=== PATIENT | male | born 1945 | race Caucasian/White ===

== ENCOUNTER 2020-09-28 12:31 | Inpatient (IN) | payer MEDICARE ==
[~2020-09-28] VITALS: Ht 170.2 cm; Wt 83.9 kg
[2020-09-28] MEDS ORDERED: LEVO125T8 PO (12:43)
[2020-09-28] MEDS ORDERED: ATOR10TA PO (12:43)
[2020-09-28] MEDS ORDERED: OLAN5TAB3 PO ×2 (12:43)
[2020-09-28] MEDS ORDERED: [UNRECOGNIZED DRUG - OTHER] IM (12:43)
[2020-09-28] MEDS ORDERED: ASPI81TA31 PO (12:43)
--- NOTE | 2020-09-28 12:45 | NUR ---
Dr Doyle evaluated the pt.
--- NOTE | 2020-09-28 12:48 | NUR ---
Pt walking out of the room, asking for his . Lunch tray provided, redirect pt back to the room.
--- NOTE | 2020-09-28 12:50 | NUR ---
Pt medically cleared by Dr Doyle for admit to [facility].
--- NOTE | 2020-09-28 13:02 | NUR ---
Pt is asking "how to get of here". Pt wore his christiano to leave ER. Redirected back to his room.
[2020-09-28] MEDS ORDERED: diphenhydrAMINE 50 MG/1 ML VIAL IM ONE (13:45)
[2020-09-28] MEDS ORDERED: HALOPERIDOL LACTATE 5 MG/1 ML VIAL IM ONE (13:45)
[2020-09-28] MEDS ORDERED: MAG HYDROX/AL HYDROX/SIMETH 30 ML LIQUID UDC PO PRN (13:45)
[2020-09-28] MEDS ORDERED: ACETAMINOPHEN 325 MG TABLET PO PRN (13:45)
[2020-09-28] MEDS ORDERED: MAGNESIUM HYDROXIDE 30 ML LIQUID UDC PO PRN (13:45)
[2020-09-28] MEDS ORDERED: LORAZEPAM 2 MG/1 ML VIAL IV ONE (13:45)
--- NOTE | 2020-09-28 13:45 | NUR ---
GPS: Nursing Notes: Admitting Notes: ER placed him in the system at this time. Admitted to [facility] on [address] due to losing his house at [facility] about a month ago, states that he has a history of being on [place] for 17 years, but has been non-adherent for the last few years. Patient tangential, disorganized, with fight of ideas, unable to present a tangible plan for self care. On face to face assessment, patient is angry, labile, unpredictable behavior, AWOL risk, restless behavior, threatening staff, "I know karate..I can hurt you..", "I am leaving...I am not going to stay...", pushing the exit doors, shouting "I am leaving... My is waiting for me outside...", intrusive, going into the social service liaison's office, Standing by the exit door waiting for someone to enter the unit, so he can elope, copy of advisement given to patient but shouting "It is a lie... I am a millionaire...I have money...", "I am not homeless...", "My is waiting for me outside..", setting limits, oriented to the unit, admitting package given to patient, but unable to be redirected, paranoid and restless behavior, unable to contract for safety, refusing to give contraband items in his possession, Dr. Foss called back and ordered Haldol 5mg IM, Ativan 2mg IM, and Benadryl 25mg IM STAT for severe agitation, continue to monitor for safety, continue with treatment plan.
--- NOTE | 2020-09-28 14:15 | NUR ---
GPS: Nursing Notes: Reassessment of Chemical Restraint: Patient is awake and responding to his name, patient became calm, following staff directions, resistant with nursing care, but calmer, less paranoid, IM medications were effective, R=18, continue to monitor for safety, continue with treatment plan.
--- NOTE | 2020-09-28 14:43 | NUR ---
Firearms Report: Reconnaissance Crewmember completed and submitted a [employer] firearms report for 5150 grave disability certification. A copy of report has been placed in patient chart.
--- NOTE | 2020-09-28 14:49 | NUR ---
Treatment Plan: Pt refused to sign treatment plan due to being confused and verbally aggressive.
[2020-09-28 15:00] VITALS: BP 134/73
--- NOTE | 2020-09-28 15:18 | NUR ---
SW Initial Discharge Plan: Patient is homeless and will require a placement. This SW spoke with patient's Miley ([phone]) and discharge and treatment plan. Miley stated that she lives in [facility] and is unable to take care of pt. This SW will work with the MD and pt to find proper placement.
--- NOTE | 2020-09-28 15:18 | NUR ---
SW Family Contact: This SW spoke with patient's Miley ([phone]) and discharge and treatment plan. Miley stated that she lives in [facility] and is unable to take care of pt.
[2020-09-28 20:00] VITALS: BP 133/75
[2020-09-28] MEDS: DIVALPROEX 250 MG TABLET.DR PO SCH (22:48)
--- NOTE | 2020-09-29 05:43 | NUR ---
GPS: Remain calm and cooperative with meds and care. no agitation noted at this time. continue plan of care.
--- NOTE | 2020-09-29 06:02 | NUR ---
slept 5.30 hrs through the night.
[2020-09-29] MEDS: DIVALPROEX 250 MG TABLET.DR PO SCH ×3 (08:18→16:39)
[2020-09-29] MEDS: LORAZEPAM 1 MG TABLET PO PRN ×2 (08:18→22:47)
[2020-09-29 08:25] LABS: BILIRUBIN,TOTAL 0.3 mg/dL (0.2-1.0); POTASSIUM 4.2 mmol/L (3.5-5.1); TOTAL PROTEIN, SERUM 6.7 g/dL (6.4-8.2)
[2020-09-29 08:30] VITALS: BP 124/85
[2020-09-29] MEDS: ASPIRIN 81 MG TAB.CHEW PO SCH (09:52)
[2020-09-29] MEDS: LEVOTHYROXINE SODIUM 125 MCG TABLET PO SCH (09:52)
[2020-09-29 15:00] VITALS: BP 140/73
[2020-09-29 20:11] VITALS: BP 114/67
[2020-09-29] MEDS: ATORVASTATIN 10 MG TABLET PO SCH (20:31)
[2020-09-30] MEDS: LEVOTHYROXINE SODIUM 125 MCG TABLET PO SCH (06:40)
[2020-09-30 07:30] VITALS: BP 115/71
--- NOTE | 2020-09-30 09:00 | NUR ---
SNF Referral: This SW sent clinicals to [place] admin from [facility] ([phone]) for placement option. This SW faxed H & P, progress notes, and medication list.
--- NOTE | 2020-09-30 09:48 | NUR ---
SNF Referral: This SW spoke with admin from [facility] ([phone]) who stated pt is accepted.
[2020-09-30] MEDS: DIVALPROEX 250 MG TABLET.DR PO SCH ×3 (10:01→18:17)
[2020-09-30] MEDS: ASPIRIN 81 MG TAB.CHEW PO SCH (10:01)
--- NOTE | 2020-09-30 10:21 | NUR ---
Friend Contact: This SW received a phone call from friend Ty ([phone]) and was concerned for pt. This SW explained patient's treatment and discharge plan.
[2020-09-30 16:00] VITALS: BP 127/73
[2020-09-30 19:53] VITALS: BP 125/63
[2020-09-30] MEDS: ATORVASTATIN 10 MG TABLET PO SCH (21:20)
[2020-09-30] MEDS: NYSTATIN POWDER 15 GM BOTTLE TOP SCH (21:22)
--- NOTE | 2020-09-30 22:02 | NUR ---
Received patient in the hallway, hyperverbal, attention seeking, semi fair insight and semi fair judgment. Patient will remain in a psych facility for further evaluation and treatment.
[2020-10-01] MEDS: LEVOTHYROXINE SODIUM 125 MCG TABLET PO SCH (06:06)
[2020-10-01 07:30] VITALS: BP 138/67
[2020-10-01] MEDS: ASPIRIN 81 MG TAB.CHEW PO SCH (08:38)
[2020-10-01] MEDS: DIVALPROEX 250 MG TABLET.DR PO SCH ×3 (08:38→16:53)
[2020-10-01] MEDS: NYSTATIN POWDER 15 GM BOTTLE TOP SCH ×2 (08:38→21:26)
--- NOTE | 2020-10-01 14:43 | NUR ---
SW Individual Therapy: drive worker met with patient for brief counseling to help address patients presenting problem disorganized thought content. Pt appeared to be somewhat confused, however, pt was able to have a conversation with this SW. Pt appeared tearful while this SW was conducting therapy. Pt shared that his mother and brother from cancer. Pt expressed that he feels sad and is unable to let it go. SW actively listened and provided emotional support.
[2020-10-01 16:00] VITALS: BP 128/65
[2020-10-01 20:26] VITALS: BP 104/57
[2020-10-01] MEDS: ATORVASTATIN 10 MG TABLET PO SCH (21:24)
[2020-10-01] MEDS: TEMAZEPAM 7.5 MG CAPSULE PO PRN (21:24)
--- NOTE | 2020-10-02 05:34 | NUR ---
SHIFT NOTE; PT IS ALERT AND ORIENTED X4 REPORT RECEIVED FROM CAMPOS NO SIGNS OF DISTRESS NOTED. TOOK HS MEDICATION SLEPT DURING NIGHT PT AWAKENED BY ROOMMATE TAKING HIS JACKET . PT IS CALM AFTER TALKING WITH ROOM MATE. WILL ENDORSE TO AM NURSE.
[2020-10-02] MEDS: LEVOTHYROXINE SODIUM 125 MCG TABLET PO SCH (06:02)
[2020-10-02] MEDS: ASPIRIN 81 MG TAB.CHEW PO SCH (08:21)
[2020-10-02] MEDS: DIVALPROEX 250 MG TABLET.DR PO SCH ×3 (08:21→16:55)
[2020-10-02] MEDS: NYSTATIN POWDER 15 GM BOTTLE TOP SCH ×2 (08:22→20:17)
[2020-10-02] MEDS: CLOTRIMAZOLE 1% CREAM 30 GM TUBE TOP SCH (08:22)
[2020-10-02 10:14] VITALS: BP 124/82
--- NOTE | 2020-10-02 12:01 | NUR ---
JELLY PC Hearing: Patient had 5250 probable cause hearing today and it was upheld for grave disability.
[2020-10-02 20:15] VITALS: BP 117/65
[2020-10-02] MEDS: ATORVASTATIN 10 MG TABLET PO SCH (20:16)
[2020-10-03] MEDS: LEVOTHYROXINE SODIUM 125 MCG TABLET PO SCH (06:18)
--- NOTE | 2020-10-03 06:28 | NUR ---
GPS: GPS: Remain calm and cooperative with meds and care. no agitation noted at this time. continue plan of care. took shower this morning. slept 6.30 hrs through the night. resting on bed comfortably.
[2020-10-03 07:56] VITALS: BP 118/62
[2020-10-03] MEDS: DIVALPROEX 250 MG TABLET.DR PO SCH ×3 (09:24→16:46)
[2020-10-03] MEDS: ASPIRIN 81 MG TAB.CHEW PO SCH (09:24)
[2020-10-03] MEDS: NYSTATIN POWDER 15 GM BOTTLE TOP SCH ×2 (09:25→20:08)
[2020-10-03] MEDS: CLOTRIMAZOLE 1% CREAM 30 GM TUBE TOP SCH (09:26)
[2020-10-03 16:24] VITALS: BP 117/72
[2020-10-03] MEDS: ATORVASTATIN 10 MG TABLET PO SCH (20:08)
[2020-10-03 20:09] VITALS: BP 115/71
[2020-10-04] MEDS: LEVOTHYROXINE SODIUM 125 MCG TABLET PO SCH (06:15)
[2020-10-04 07:30] VITALS: BP 112/75
[2020-10-04] MEDS: ASPIRIN 81 MG TAB.CHEW PO SCH (08:17)
[2020-10-04] MEDS: DIVALPROEX 250 MG TABLET.DR PO SCH ×3 (08:17→16:52)
[2020-10-04] MEDS: CLOTRIMAZOLE 1% CREAM 30 GM TUBE TOP SCH (08:17)
[2020-10-04] MEDS: NYSTATIN POWDER 15 GM BOTTLE TOP SCH ×2 (08:18→20:26)
[2020-10-04 15:38] VITALS: BP 124/64
[2020-10-04 20:12] VITALS: BP 116/57
[2020-10-04] MEDS: ATORVASTATIN 10 MG TABLET PO SCH (20:26)
[2020-10-05] MEDS: LEVOTHYROXINE SODIUM 125 MCG TABLET PO SCH (06:12)
--- NOTE | 2020-10-05 06:36 | NUR ---
Received Pt in the day room socializing with his peers. Pt is hyperverbal with pressured speech, and is loose and tangential in thought process. Pt is somatic and hyper-fixated on his perceived hernia and the "need to go to [facility] so I can get my operation by Dr Brewer, make sure that is in my chart." Pt is delusional and grandiose stating he is "not homeless, I have million of dollars." Pt is needy and intrusive, and attempts to interfere with the care of other patients, requiring frequent redirection. Pt is labile when boundaries are enforced and limits are set. Pt was noted to be anxious and restless, but refused prn medication when offered. Remains with poor insight. Denies SI/HI andf verbally contracts for safety. VS stable, denies pain.
[2020-10-05 07:30] VITALS: BP 123/71
[2020-10-05] MEDS: CLOTRIMAZOLE 1% CREAM 30 GM TUBE TOP SCH (08:28)
[2020-10-05] MEDS: ASPIRIN 81 MG TAB.CHEW PO SCH (08:28)
[2020-10-05] MEDS: DIVALPROEX 250 MG TABLET.DR PO SCH ×3 (08:28→16:29)
[2020-10-05] MEDS: NYSTATIN POWDER 15 GM BOTTLE TOP SCH ×2 (08:29→20:16)
--- NOTE | 2020-10-05 15:03 | NUR ---
JELLY Individual Therapy: animal shelter worker met with patient for brief counseling to help address patients presenting problem disorganized thought content. Pt appeared to be somewhat confused. He was fixated on his hernia surgery. Pt unable to have conversation at this time due to being delusional.
[2020-10-05 15:11] VITALS: BP 122/74
[2020-10-05 20:08] VITALS: BP 119/66
[2020-10-05] MEDS: ATORVASTATIN 10 MG TABLET PO SCH (20:16)
[2020-10-06] MEDS: LEVOTHYROXINE SODIUM 125 MCG TABLET PO SCH (06:24)
[2020-10-06 07:30] VITALS: BP 141/54
[2020-10-06] MEDS: ASPIRIN 81 MG TAB.CHEW PO SCH (09:00)
[2020-10-06] MEDS: DIVALPROEX 250 MG TABLET.DR PO SCH ×3 (09:01→16:32)
[2020-10-06] MEDS: CLOTRIMAZOLE 1% CREAM 30 GM TUBE TOP SCH (09:01)
[2020-10-06] MEDS: NYSTATIN POWDER 15 GM BOTTLE TOP SCH ×2 (09:02→20:50)
[2020-10-06 13:12] LABS: *BILIRUBIN,URIN NEGATIVE (NEGATIVE); *BLOOD, URINE TRACE (NEGATIVE); *CLARITY,URINE CLEAR (CLEAR); *COLOR,URINE YELLOW (YELLOW); *KETONES,URINE NEGATIVE (NEGATIVE); *UROBILINOGEN,URINE 0.2 E.U./dl (NORMAL); LEUKOCYTE ESTERASE ,URINE NEGATIVE (NEGATIVE); NITRITE, URINE NEGATIVE (NEGATIVE); UGLUCOSE NEGATIVE (NEGATIVE)
--- NOTE | 2020-10-06 15:11 | NUR ---
Friend Contact: This SW contacted patient's friend Ty ([phone]) and gave information of pt's that he will be discharged on Monday 10/09 to [facility].
--- NOTE | 2020-10-06 15:12 | NUR ---
SW Family Contact: This SW left a voicemail for pt's Miley ([phone]) and stated that pt will be discharged / to [facility] and left a detailed voicemail.
[2020-10-06 15:22] VITALS: BP 110/56
[2020-10-06 16:15] LABS: BACTERIA,URINE NONE SEEN /HPF (NONE SEEN); RBC,URINE 0-3 /HPF (0-3); SQUAMOUS EPITHELIAL CELL,UR FEW /HPF (NONE SEEN); URINE AMORPHOUS URATE FEW /HPF; WBC,URINE 0-3 /HPF (0-3)
[2020-10-06 20:13] VITALS: BP 124/68
[2020-10-06] MEDS: ATORVASTATIN 10 MG TABLET PO SCH (20:49)
--- NOTE | 2020-10-06 21:00 | NUR ---
RECEIVED PT IN [facility] AM NURSE CAMPOS GAVE REPORT PT IS ANXIOUS AFTER ROOM MATE T00K OPAL ROOMMATE IS AT NURSING STATION. PT TOOK MEDICATION ORDERED NO ADCERSE REACTION NOTED. WILL CONTINUE TO MONITOR FOR SAFETY ANY OTHER NEEDS PATIENT MAY HAVE.
[2020-10-06] MEDS ORDERED: DIVALPROEX 250 MG TABLET.DR PO STA (22:27)
[2020-10-07] MEDS: LEVOTHYROXINE SODIUM 125 MCG TABLET PO SCH (06:02)
[2020-10-07 07:30] VITALS: BP 110/67
--- NOTE | 2020-10-07 07:33 | NUR ---
CHECKED AND PUT ON CLEAN LINEN FOUND E DEPAKOTE PILLS AND ANOTHER MEDICATION GAVE TO CHARGE NURSE CLAUDY AND AFTERWARD CHARGE NURSE TALKED WITH PATIENT. WILL ENDORSE WITH AM NURSE.
[2020-10-07] MEDS ORDERED: DIVALPROEX 500 MG TABLET.DR PO SCH ×2 (09:00→21:00)
[2020-10-07] MEDS: NYSTATIN POWDER 15 GM BOTTLE TOP SCH ×2 (09:00→20:46)
[2020-10-07] MEDS ORDERED: DIVALPROEX 125 MG TABLET.DR PO SCH (09:00)
[2020-10-07] MEDS: CLOTRIMAZOLE 1% CREAM 30 GM TUBE TOP SCH (09:00)
[2020-10-07] MEDS: ASPIRIN 81 MG TAB.CHEW PO SCH (10:55)
[2020-10-07] MEDS: DIVALPROEX 250 MG TABLET.DR PO SCH ×2 (10:55→13:00)
[2020-10-07 20:16] VITALS: BP 120/62
[2020-10-07] MEDS: ATORVASTATIN 10 MG TABLET PO SCH (20:43)
[2020-10-08] MEDS: LEVOTHYROXINE SODIUM 125 MCG TABLET PO SCH (06:02)
[2020-10-08 07:30] VITALS: BP 96/57
--- NOTE | 2020-10-08 08:00 | NUR ---
NURSE REPORT Report obtained from jose a nurse Bishnu at 0715 and this nurse assumed care of patient. Received. patient awake and no c/o pain or discomfort. VSS. Afeb. BP 96/57.
[2020-10-08] MEDS: NYSTATIN POWDER 15 GM BOTTLE TOP SCH ×2 (09:31→21:00)
[2020-10-08] MEDS: VALPROIC ACID 250 MG/5 ML LIQUID UDC PO SCH ×3 (09:31→22:06)
[2020-10-08] MEDS: ASPIRIN 81 MG TAB.CHEW PO SCH (09:31)
[2020-10-08] MEDS: CLOTRIMAZOLE 1% CREAM 30 GM TUBE TOP SCH (09:31)
--- NOTE | 2020-10-08 15:00 | NUR ---
NURSE CARE Given Depakene liquid and this nurse watch patient take med orally near nurse station. Givenwater to drink afterwards.
--- NOTE | 2020-10-08 15:25 | NUR ---
Friend Contact: This SW contacted patient's friend Ty ([phone]) and informed of patient's discharge. SW left a voicemail.
[2020-10-08 16:51] VITALS: BP 146/66
--- NOTE | 2020-10-08 19:45 | NUR ---
NURSE REPORT Report given to night nurse Veena and RELL given. All questions answered. Patient was cheeking meds and on liquid meds. Not sure about dc date.
[2020-10-08 20:00] VITALS: BP 128/57
[2020-10-08] MEDS: ATORVASTATIN 10 MG TABLET PO SCH (22:06)
[2020-10-09] MEDS: LEVOTHYROXINE SODIUM 125 MCG TABLET PO SCH (07:00)
[2020-10-09 07:30] VITALS: BP 133/66
--- NOTE | 2020-10-09 07:30 | NUR ---
NURSE REPORT Report obtained from night nurse Veena at 0730 and this nurse assumed care of patient. Received. patient awake and no c/o pain or discomfort. VSS. Afeb. BP 133/66. No c/o pain or discomfort.
[2020-10-09] MEDS: NYSTATIN POWDER 15 GM BOTTLE TOP SCH ×2 (09:00→20:26)
[2020-10-09] MEDS: CLOTRIMAZOLE 1% CREAM 30 GM TUBE TOP SCH (09:00)
[2020-10-09] MEDS: ASPIRIN 81 MG TAB.CHEW PO SCH (09:15)
[2020-10-09] MEDS: VALPROIC ACID 250 MG/5 ML LIQUID UDC PO SCH ×3 (09:15→20:22)
--- NOTE | 2020-10-09 11:10 | NUR ---
EARLY DISCHARGE ENTRY (Monday10/12/20): Patient will be discharged to group home facility, [facility] ([address], [place] [address]; ) via Ambulance transportation at 12PM. Geodetic Technician spoke with Danica [employer] Music Teacher at [facility]; ([phone]), who stated patient will be accepted today. Per, pts Miley ([phone]) has been made aware and agreeable with discharge plans. Patient is alert and oriented x3 and is unable to plan for self-care. Patient denies any suicidal or homicidal ideations. Patient denies visual/auditory hallucinations. Patient is aware and agreeable with discharge plans. Patient will continue to follow-up with (Psychiatrist) Dr. Foss and (Deicer Element Winder Machine) Dr. Gibbs at [facility] [[address], [place] [address]; ). Patient signed the homeless waiver upon discharge and a copy was placed in the chart. Homeless resources were provided and include [address] information line for shelters and homeless resources. A copy of all resources given to patient was also placed in the chart. Patient presents with euthymic and congruent mood.
[2020-10-09 16:00] VITALS: BP 135/64
--- NOTE | 2020-10-09 19:15 | NUR ---
NURSE REPORT Report given to night nurse Caroline to assume care of patient. D/C was placed on hold since 14 D til 10/12. On liquid Depakene. No c/o pain or discomfort. Dee Gilliam RN
[2020-10-09 20:07] VITALS: BP 144/59
[2020-10-09] MEDS: ATORVASTATIN 10 MG TABLET PO SCH (20:21)
[2020-10-09] MEDS: TEMAZEPAM 7.5 MG CAPSULE PO PRN (22:41)
[2020-10-10] MEDS: LEVOTHYROXINE SODIUM 125 MCG TABLET PO SCH (06:11)
[2020-10-10 08:10] VITALS: BP 120/60
[2020-10-10] MEDS: VALPROIC ACID 250 MG/5 ML LIQUID UDC PO SCH ×3 (08:33→21:40)
[2020-10-10] MEDS: ASPIRIN 81 MG TAB.CHEW PO SCH (08:33)
[2020-10-10] MEDS: CLOTRIMAZOLE 1% CREAM 30 GM TUBE TOP SCH (08:35)
[2020-10-10] MEDS: NYSTATIN POWDER 15 GM BOTTLE TOP SCH ×2 (08:35→21:42)
[2020-10-10 15:58] VITALS: BP 131/65
--- NOTE | 2020-10-10 16:11 | NUR ---
PT NOTED TO BE EXCESSIVELY INTRUSIVE, DIFFICULT TO REDIRECT. PT SPEAKS FOR OTHER PTS IN THE UNIT. HE ALSO INTERFERES WITH CARE WHEN NURSES PROVIDE CARE TO OTHER PT'S. PT REQUIRES CONSTANT REDIRECTION AND IS EXCESSIVELY ARGUMENTATIVE.
--- NOTE | 2020-10-10 20:00 | NUR ---
RECEIVED REPORT FROM AM NURSE CLEMENCIA PT IS ALERT AND ORIENTED X4 PT WAS GIVEN MEDICATION ORDERS AND IS SCHEDULED FOR DISCHARGE 10/12/20PT IS COMPLIANT WITH MEDICATION WILL CONTINUE TO MONITOR. NO SIGNS OF DISTRESS NOTED.
[2020-10-10 20:09] VITALS: BP 116/66
[2020-10-10] MEDS: ATORVASTATIN 10 MG TABLET PO SCH (21:41)
[2020-10-11] MEDS: LEVOTHYROXINE SODIUM 125 MCG TABLET PO SCH (06:34)
[2020-10-11 08:02] VITALS: BP 118/64
[2020-10-11] MEDS: ASPIRIN 81 MG TAB.CHEW PO SCH (08:19)
[2020-10-11] MEDS: VALPROIC ACID 250 MG/5 ML LIQUID UDC PO SCH ×3 (08:19→20:24)
[2020-10-11] MEDS: NYSTATIN POWDER 15 GM BOTTLE TOP SCH ×2 (08:19→20:24)
[2020-10-11] MEDS: CLOTRIMAZOLE 1% CREAM 30 GM TUBE TOP SCH (08:19)
[2020-10-11 16:00] VITALS: BP 102/56
--- NOTE | 2020-10-11 18:51 | NUR ---
Patient in activity room. AOx2-3. No signs of acute distress. Ambulatory. Able to care for self. Compliant with medications and care. Patient for discharge tomorrow. Will endorse to incoming shift for continuity of care.
[2020-10-11 20:00] VITALS: BP 110/59
[2020-10-11] MEDS: ATORVASTATIN 10 MG TABLET PO SCH (20:24)
[2020-10-11] MEDS: LORAZEPAM 1 MG TABLET PO PRN (20:25)
[2020-10-12] MEDS: LEVOTHYROXINE SODIUM 125 MCG TABLET PO SCH (06:01)
--- NOTE | 2020-10-12 07:15 | NUR ---
NURSE REPORT Report obtained from night nurse Caroline at 0715 and this nurse assumed care of patient. Received. patient awake and no c/o pain or discomfort. VSS. Afeb. BP 117/54
[2020-10-12 07:30] VITALS: BP 117/59
[2020-10-12] MEDS: VALPROIC ACID 250 MG/5 ML LIQUID UDC PO SCH ×2 (09:22→13:14)
[2020-10-12] MEDS: ASPIRIN 81 MG TAB.CHEW PO SCH (09:22)
[2020-10-12] MEDS: NYSTATIN POWDER 15 GM BOTTLE TOP SCH (09:23)
[2020-10-12] MEDS: CLOTRIMAZOLE 1% CREAM 30 GM TUBE TOP SCH (09:23)
--- NOTE | 2020-10-12 13:00 | NUR ---
DISCHARGE NOTES Other nurse did patient discharge. Depakene given as ordered.
--- NOTE | 2020-10-12 13:45 | NUR ---
GPS: Nursing Notes: Discharge Notes: Patient is awake and responding to his name, compliant with his medications, cooperative with nursing care, following staff directions, denies SI/HI, denies AH/VH, denies pain or discomfort, denies SOB, discharge to [facility] at [address] [place] [address] , report given to facility's nurse - DERRICK Joseph cabinetmaker supervisor, transported to facility via ambulance, patient's - Miley was notify of discharge by social worker assistant, patient took all his belongings with him. Patient will continue to follow-up with (Psychiatrist) Dr. Foss and (Lead Pourer) Dr. Gibbs at [facility] [[address] [place] [address]; ). Patient signed the homeless waiver upon discharge and a copy was placed in the chart. Homeless resources were provided and include 211 information line for shelters and homeless resources. A copy of all resources given to patient was also placed in the chart.
== END 2020-10-12 13:45 | DRG 885 ==
LOC: ER 12:31 → GPS 13:30
PROVIDERS: ADMIT Psychiatry & Neurology Psychiatry; ATTEND Internal Medicine
PROC: 0HBRXZZ Excision of Toe Nail, External Approach (ICD-10-PCS; principal; 2020-10-01)
DX: F31.64 Bipolar disorder, current episode mixed, severe, with psychotic features (principal); E78.5 Hyperlipidemia, unspecified; E03.9 Hypothyroidism, unspecified; B35.3 Tinea pedis; B35.1 Tinea unguium; F03.90 Unspecified dementia, unspecified severity, without behavioral disturbance, psychotic disturbance, mood disturbance, and anxiety; F41.9 Anxiety disorder, unspecified; Z85.828 Personal history of other malignant neoplasm of skin; Z20.822 Contact with and (suspected) exposure to COVID-19; F29 Unspecified psychosis not due to a substance or known physiological condition; Z73.6 Limitation of activities due to disability; M62.81 Muscle weakness (generalized); Z79.82 Long term (current) use of aspirin; Z59.0 Homelessness
CPT/HCPCS: 36415; 80164; 93005; A4663; J1200; J1630; J2060; J3490